=== PATIENT | male | born 1985 | race Caucasian/White ===

== ENCOUNTER 2016-11-06 15:46 | Emergency (ER) | payer BC, OTHER ==
[2016-11-06 17:52] LABS: BASO # 0.1 K/mm3 (0.0-0.2); BASO % 0.9 % (0.0-1.0); EOS # 0.4 K/mm3 (0.0-0.50); EOS % 3.3 % (0.0-3.0); LARGE UNSTAINED CELL # 0.2 K/mm3 (0.0-0.4); LARGE UNSTAINED CELL % 1.4 % (0.0-4.0); LYMPH # 2.7 K/mm3 (1.5-4.5); LYMPH % 22.8 % (24.0-44.0); MEAN CORPUSCULAR HGB CONC 33.7 g/dl (32.0-36.5); MONO # 0.5 K/mm3 (0.0-0.8); MONO % 3.9 % (0.0-5.0); NEUTROPHILS # 8.1 K/mm3 (1.8-7.7); NEUTROPHILS % 67.7 % (36.0-66.0); PLATELET COUNT, AUTOMATED 411 k/mm3 (150-450); RED CELL DISTRIBUTION WIDTH 12.4 % (11.5-14.5); WHITE BLOOD COUNT 11.9 K/mm3 (4.0-10.0)
--- NOTE | 2016-11-06 18:11 | REP ---
Clinical: Right testicular pain. Technique: Real time junior scale and color Doppler evaluation using linear and curved array transducers. Findings: The bilateral testicles are normal in contour, size, echogenicity, and vascularity without evidence for testicular mass lesion, torsion, or infectious/inflammatory process. Incidental note is made of 2.3 mm right epididymal head cyst and 3.1 mm left epididymal head cyst. The right epididymis appears heterogeneous and mildly enlarged with a minimally increased flow. A very subtle epididymitis cannot be excluded. No varicoceles. No significant hydroceles. Right testicle measures 4.4 x 2.1 x 3.5 cm. Left testicle measures 4.3 x 2.3 x 3.3 cm. Impression: Cannot exclude subtle right epididymitis. Signed by Rodolfo Che MD 11/06/2016 06:03 P
[2016-11-06 18:13] LABS: ANION GAP 9 MEQ/L (8-16); BLOOD UREA NITROGEN 13 MG/DL (7-18); CALCIUM LEVEL 9.1 MG/DL (8.5-10.1); CARBON DIOXIDE LEVEL 27 MEQ/L (21-32); CHLORIDE LEVEL 106 MEQ/L (98-107); CREATININE FOR GFR 1.19 MG/DL (0.70-1.30); GLOMERULAR FILTRATION RATE > 60.0 (>60); GLUCOSE, FASTING 106 MG/DL (70-105); POTASSIUM SERUM 4.3 MEQ/L (3.5-5.1); SODIUM LEVEL 142 MEQ/L (136-145)
--- NOTE | 2016-11-06 19:02 | EDDOCDS ---
Physician Documentation [facility] Name: Toñito Foreman Age: 31 yrs Sex: Male : 1985 Arrival Date: 11/06/2016 Time: 15:46 Bed PR Private MD: Mateo Roth R. Disposition: 11/06/16 18:48 Discharged to Home/Self Care. Impression: Epididymitis - RIGHT, Cyst of epididymis - RIGHT AND LEFT. - Condition is Stable. - Discharge Instructions: Scrotal Masses, Epididymitis. - Prescriptions for Cipro 500 mg Oral Tablet - take 1 tablet by ORAL route every 12 hours; 14 tablet. Ibuprofen 600 mg Oral Tablet - take 1 tablet by ORAL route every 6 hours As needed take with food; 30 tablet. - Work Release Form - 1 day, Medication Reconciliation, Local Pharmacy Hours form. - Follow up: Alejandro Doherty; When: 2 - 3 days; Reason: Recheck today's complaints, Continuance of care. - Problem is new. - Symptoms have improved. - Notes: USE MEDICATIONS INSTRUCTED, FOLLOW UP WITH DR DOHERTY, USE SUPPORTIVE JOCK STRAP AND USE WARM BATHES 1-2 TIMES DAILY, RETURN TO THE ER IF THE SYMPTOMS WORSEN OR BECOME CONCERNING Historical: - Allergies: no known allergies; - Home Meds: 1. Zoloft 150mg Oral once daily 2. sleeping medication 3. medication for anger management - PMHx: none; - PSHx: Appendectomy; - Social history: Smoking status: Chewing Tobacco No barriers to communication noted, The patient speaks fluent Croatian. - Family history: Not pertinent. - : The pt / caregiver states he / she is not on anticoagulants. Home medication list is obtained from the patient. - Exposure Risk Screening:: None identified. Vital Signs: 11/06 15:48 BP 126 / 67; Pulse 88; Resp 18 S; Temp 98.6(O); Pulse Ox 100% on R/A; Weight 65.77 kg / dd6 145 lbs (R); Height 5 ft. 6 in. (167.64 cm) (R); 18:53 BP 114 / 62; Pulse 67; Resp 18; Temp 97.2(O); Pulse Ox 100% on R/A; Pain 0/10; ct3 15:48 Body Mass Index 23.40 (65.77 kg, 167.64 cm) dd6 MDM: 17:32 CBC with Diff Ordered. EDMS 17:32 MED Profile Ordered. EDMS 17:33 UA Ordered. EDMS 17:33 Scrotal, US Ordered. EDMS 17:36 Financial registration complete. gjb 17:39 DUPLEX SCAN LIMITED (DOPPLER) Ordered. EDMS 17:54 [facility] Payment Agreement was scanned into [employer] and attached to record. gjb 18:36 CBC with Diff Reviewed. ck7 18:36 MED Profile Reviewed. ck7 18:36 UA Reviewed. ck7 18:36 Scrotal, US Reviewed. ck7 18:38 GC & Chlamydia Amplification Ordered. EDMS 18:38 Urine Culture Ordered. EDMS Signatures: Dispatcher [employer] Jenniffer Bui, RN Brady Gaytan, NALINI-C RPA-CckKody Wahl RN RN jmb Beck, Gabriela gjb The chart was reviewed and I authenticate all verbal orders and agree with the evaluation and treatment provided.Attachments: 17:54 [place] [place] gj MTDD
--- NOTE | 2016-11-06 19:02 | EDDOCDS ---
Nurse's Notes [facility] Name: Toñito Foreman Age: 31 yrs Sex: Male : 1985 Arrival Date: 11/06/2016 Time: 15:46 Bed PR Private MD: Mateo Roth R. Diagnosis: Epididymitis-RIGHT;Cyst of epididymis-RIGHT AND LEFT Presentation: 11/06 15:51 Presenting complaint: Patient states: Pt presents stating 'I have a lump in my right dls [place]" pt means testicle noticed 3 days ago. Adult Sepsis Screening: The patient does not have new or worsening altered mentation. Patient's respiratory rate is less than 22. Systolic blood pressure is greater than 100. Patient has a qSOFA score of 0- Negative Sepsis Screen. Suicide/Homicide risk assessment- the patient denies having any suicidal and/or homicidal ideations and does not present with any other emotional, behavioral or mental health complaints. Status: Patient is not a multimedia services manager or dependent. Transition of care: patient was not received from another setting of care. 15:51 Acuity: WOLF Level 3 dls 15:51 Method Of Arrival: Walkin/Carried/Asstd dls Triage Assessment: 15:56 General: Appears in no apparent distress, slender, well developed, well nourished, well dls groomed, Behavior is cooperative. Pain: Denies pain. HIV screening NA for this visit Offered previously. Historical: - Allergies: no known allergies; - Home Meds: 1. Zoloft 150mg Oral once daily 2. sleeping medication 3. medication for anger management - PMHx: none; - PSHx: Appendectomy; - Social history: Smoking status: Chewing Tobacco No barriers to communication noted, The patient speaks fluent Spanish. - Family history: Not pertinent. - : The pt / caregiver states he / she is not on anticoagulants. Home medication list is obtained from the patient. - Exposure Risk Screening:: None identified. Screenin:00 Screening information is obtained from the patient. Fall risk: No risks identified. jmb Assistance ADL's: requires no assistance with activities of daily living. Abuse/DV Screen: The patient / caregiver reports he/she is: not in a situation that causes fear, pain or injury. Nutritional screening: No deficits noted. Advance Directives: Currently, there is no health care proxy. There is no active DNR order. There is no living will. There is no Power of Picker Tender. home support is adequate. Assessment: 19:00 General: Patient instructed on discharge instructions. Patient asked if there were any b questions regarding discharge, patient stated no. Patient signed discharge instructions. Patient discharged in stable condition.. Vital Signs: 15:48 BP 126 / 67; Pulse 88; Resp 18 S; Temp 98.6(O); Pulse Ox 100% on R/A; Weight 65.77 kg dd6 (R); Height 5 ft. 6 in. (167.64 cm) (R); 18:53 BP 114 / 62; Pulse 67; Resp 18; Temp 97.2(O); Pulse Ox 100% on R/A; Pain 0/10; ct3 15:48 Body Mass Index 23.40 (65.77 kg, 167.64 cm) dd6 Vitals: 15:48 Log In Time: November 06, 2016 at 15:46. dd6 ED Course: 15:48 Patient visited by Lupillo Escobar PCA. dd6 15:48 Mateo Roth is Private Physician. dd6 15:48 Patient moved to Waiting dd6 15:49 Patient moved to Pre RCE dd6 15:53 Triage Initiated dls 16:54 Patient moved to Triage 2 ms18 17:19 Brady Ambrocio RPA-C is PHCP. ck7 17:19 Karishma Arenas MD is Attending Physician. ck7 17:19 Patient visited by Brady Ambrocio RPA-C. ck7 17:41 Patient moved to PR1 / 25 ct3 17:43 Patient moved to TR2 ms18 17:43 UA Sent. ct3 17:43 MED Profile Sent. ct3 17:43 CBC with Diff Sent. ct3 17:53 Patient visited by Brady Ambrocio RPA-C. ck7 17:54 [facility] [place] Agreement was scanned into [employer] and attached to record. gjb 18:24 Patient visited by Yanira Aleman PCA. ct3 18:34 Scrotal, US Returned. EDMS 18:39 Urine Culture Sent. ct3 18:39 GC & Chlamydia Amplification Sent. ct3 18:46 Alejandro Christine is Referral Physician. ck7 18:48 Patient moved to ct3 18:53 Patient visited by Yanira Aleman PCA. ct3 19:00 The patient / caregiver is instructed regarding the plan of care and ED course. jmb 19:00 No IV's were initiated during this patient's visit. No procedures done that require jmb assistance. Order Results: Lab Order: CBC with Diff; SPEC'M 11/06/16 17:35 Test: WHITE BLOOD COUNT; Value: 11.9; Range: 4.0-10.0; Abnormal: Above high normal; Units: K/mm3; Status: F Test: RED BLOOD COUNT; Value: 4.71; Range: 4.30-6.10; Units: M/mm3; Status: F Test: HEMOGLOBIN; Value: 14.1; Range: 14.0-18.0; Units: g/dl; Status: F Test: HEMATOCRIT; Value: 41.9; Range: 42.0-52.0; Abnormal: Below low normal; Units: %; Status: F Test: MEAN CORPUSCULAR VOLUME; Value: 89.0; Range: 80.0-96.0; Units: fl; Status: F Test: MEAN CORPUSCULAR HEMOGLOBIN; Value: 30.0; Range: 27.0-33.0; Units: pg; Status: F Test: MEAN CORPUSCULAR HGB CONC; Value: 33.7; Range: 32.0-36.5; Units: g/dl; Status: F Test: RED CELL DISTRIBUTION WIDTH; Value: 12.4; Range: 11.5-14.5; Units: %; Status: F Test: PLATELET COUNT, AUTOMATED; Value: 411; Range: 150-450; Units: k/mm3; Status: F Test: NEUTROPHILS %; Value: 67.7; Range: 36.0-66.0; Abnormal: Above high normal; Units: %; Status: F Test: LYMPH %; Value: 22.8; Range: 24.0-44.0; Abnormal: Below low normal; Units: %; Status: F Test: MONO %; Value: 3.9; Range: 0.0-5.0; Units: %; Status: F Test: EOS %; Value: 3.3; Range: 0.0-3.0; Abnormal: Above high normal; Units: %; Status: F Test: BASO %; Value: 0.9; Range: 0.0-1.0; Units: %; Status: F Test: LARGE UNSTAINED CELL %; Value: 1.4; Range: 0.0-4.0; Units: %; Status: F Test: NEUTROPHILS #; Value: 8.1; Range: 1.8-7.7; Abnormal: Above high normal; Units: K/mm3; Status: F Test: LYMPH #; Value: 2.7; Range: 1.5-4.5; Units: K/mm3; Status: F Test: MONO #; Value: 0.5; Range: 0.0-0.8; Units: K/mm3; Status: F Test: EOS #; Value: 0.4; Range: 0.0-0.50; Units: K/mm3; Status: F Test: BASO #; Value: 0.1; Range: 0.0-0.2; Units: K/mm3; Status: F Test: LARGE UNSTAINED CELL #; Value: 0.2; Range: 0.0-0.4; Units: K/mm3; Status: F Lab Order: MED Profile; SPEC'M 11/06/16 17:35 Test: GLUCOSE, FASTING; Value: 106; Range: 70-105; Abnormal: Above high normal; Units: MG/DL; Status: F Test: BLOOD UREA NITROGEN; Value: 13; Range: 7-18; Units: MG/DL; Status: F Test: CREATININE FOR GFR; Value: 1.19; Range: 0.70-1.30; Units: MG/DL; Status: F Test: GLOMERULAR FILTRATION RATE; Value: > 60.0; Range: >60; Status: F Test: SODIUM LEVEL; Value: 142; Range: 136-145; Units: MEQ/L; Status: F Test: POTASSIUM SERUM; Value: 4.3; Range: 3.5-5.1; Units: MEQ/L; Status: F Test: CHLORIDE LEVEL; Value: 106; Range: 98-107; Units: MEQ/L; Status: F Test: CARBON DIOXIDE LEVEL; Value: 27; Range: 21-32; Units: MEQ/L; Status: F Test: ANION GAP; Value: 9; Range: 8-16; Units: MEQ/L; Status: F Test: CALCIUM LEVEL; Value: 9.1; Range: 8.5-10.1; Units: MG/DL; Status: F Test Note: ; Units are mL/min/1.73 m2 Chronic Kidney Disease Staging per NKF: Stage I & II GFR >=60 Normal to Mildly Decreased Stage III GFR 30-59 Moderately Decreased Stage IV GFR 15-29 Severely Decreased Stage V GFR <15 Very Little GFR Left ESRD GFR <15 on GAME OPERATOR Lab Order: UA; SPEC'M 11/06/16 17:35 Test: APPEARANCE, URINE; Value: CLEAR; Range: CLEAR; Status: F Test: COLOR, URINE; Value: STRAW; Range: YELLOW; Status: F Test: PH,URINE; Value: 7.0; Range: 5.0-9.0; Units: UNITS; Status: F Test: SPECIFIC GRAVITY URINE AUTO; Value: 1.006; Range: 1.002-1.035; Status: F Test: PROTEIN, URINE AUTO; Value: NEGATIVE; Range: NEGATIVE; Units: mg/dL; Status: F Test: GLUCOSE, URINE (UA) AUTO; Value: NEGATIVE; Range: NEGATIVE; Units: mg/dL; Status: F Test: KETONE, URINE AUTO; Value: NEGATIVE; Range: NEGATIVE; Units: mg/dL; Status: F Test: UROBILINOGEN, URINE AUTO; Value: 0.2; Range: 0.0-2.0; Units: mg/dL; Status: F Test: BILIRUBIN, URINE AUTO; Value: NEGATIVE; Range: NEGATIVE; Status: F Test: NITRITE, URINE AUTO; Value: NEGATIVE; Range: NEGATIVE; Status: F Test: LEUKOCYTE ESTERASE, URINE AUTO; Value: NEGATIVE; Range: NEGATIVE; Status: F Test: BLOOD, URINE BLOOD; Value: NEGATIVE; Range: NEGATIVE; Status: F Test: WBC, URINE AUTO; Value: 0; Range: 0-3; Units: /HPF; Status: F Test: RBC, URINE AUTO; Value: 2; Range: 0-3; Units: /HPF; Status: F Test: BACTERIA, URINE AUTO; Value: NEGATIVE; Range: NEGATIVE; Status: F Test: SQUAMOUS EPITHELIAL CELL UR AU; Value: 0; Range: 0-6; Units: /HPF; Status: F Test: MUCUS, URINE; Value: SMALL; Range: NEGATIVE; Status: F Test: HYALINE CAST, URINE AUTO; Value: 0; Range: 0-1; Units: /LPF; Status: F Radiology Order: Scrotal, US Test: Scrotal, US REASON FOR EXAMINATION: Deformity/Swelling; Clinical: Right testicular pain.; ; Technique: Real time junior scale and color Doppler evaluation using linear and; curved array transducers.; ; Findings:; The bilateral testicles are normal in contour, size, echogenicity, and; vascularity without evidence for testicular mass lesion, torsion, or; infectious/inflammatory process. Incidental note is made of 2.3 mm right; epididymal head cyst and 3.1 mm left epididymal head cyst. The right epididymis; appears heterogeneous and mildly enlarged with a minimally increased flow. A; very subtle epididymitis cannot be excluded. No varicoceles. No significant; hydroceles.; ; Right testicle measures 4.4 x 2.1 x 3.5 cm.; Left testicle measures 4.3 x 2.3 x 3.3 cm.; ; Impression:; Cannot exclude subtle right epididymitis.; ; ; Signed by; Rodolfo Che MD 11/06/2016 06:03 P; Outcome: 18:48 Discharge ordered by Provider. ck7 19:00 Discharge Assessment: Patient awake, alert and oriented x 3. No cognitive and/or jmb functional deficits noted. Patient verbalized understanding of disposition instructions. Patient awake and alert. obeys commands, Oriented to person, place and time. Patient verbalized understanding of disposition instructions. Patient has no functional deficits. patient administered narcotics - no. The following High Risk Discharge criteria are identified: None. Discharged to home ambulatory, with significant other. Condition: stable. Discharge instructions given to patient, Instructed on discharge instructions, follow up and referral plans. medication usage, Demonstrated understanding of instructions, medications, Pt was receptive of discharge instructions/ teaching. Work note provided to patient. Property sent home with patient. 19:02 Ultrasound Study completed. gloria 19:02 Patient left the ED. gloria Signatures: Dispatcher [employer] EDJenniffer Velazquez RN RN dls Desormeau, Daniell, COMPENSATOR COMPENSATOR dd6 Yanira Aleman, COMPENSATOR COMPENSATOR ct3 Brady Ambrocio, RPA-C [id number] Kody Barriga RN RN jmb Smith,Kathi,RN RN ms18 Dalia Hidalgo BETTYD
--- NOTE | 2016-11-08 20:34 | EDDOCDS ---
Nurse's Notes [facility] Name: Toñito Foreman Age: 31 yrs Sex: Male : 1985 Arrival Date: 11/06/2016 Time: 15:46 Bed PR Private MD: Mtaeo Roth R. Diagnosis: Epididymitis-RIGHT;Cyst of epididymis-RIGHT AND LEFT Presentation: 11/06 15:51 Presenting complaint: Patient states: Pt presents stating 'I have a lump in my right dls [place]" pt means testicle noticed 3 days ago. Adult Sepsis Screening: The patient does not have new or worsening altered mentation. Patient's respiratory rate is less than 22. Systolic blood pressure is greater than 100. Patient has a qSOFA score of 0- Negative Sepsis Screen. Suicide/Homicide risk assessment- the patient denies having any suicidal and/or homicidal ideations and does not present with any other emotional, behavioral or mental health complaints. 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 Transition of care: patient was not received from another setting of care. 15:51 Acuity: WOLF Level 3 dls 15:51 Method Of Arrival: Walkin/Carried/Asstd dls Triage Assessment: 15:56 General: Appears in no apparent distress, slender, well developed, well nourished, well dls groomed, Behavior is cooperative. Pain: Denies pain. HIV screening NA for this visit Offered previously. Historical: - Allergies: no known allergies; - Home Meds: 1. Zoloft 150mg Oral once daily 2. sleeping medication 3. medication for anger management - PMHx: none; - PSHx: Appendectomy; - Social history: Smoking status: Chewing Tobacco No barriers to communication noted, The patient speaks fluent Mohawk. - Family history: Not pertinent. - : The pt / caregiver states he / she is not on anticoagulants. Home medication list is obtained from the patient. - Exposure Risk Screening:: None identified. Screenin:00 Screening information is obtained from the patient. Fall risk: No risks identified. jmb Assistance ADL's: requires no assistance with activities of daily living. Abuse/DV Screen: The patient / caregiver reports he/she is: not in a situation that causes fear, pain or injury. Nutritional screening: No deficits noted. Advance Directives: Currently, there is no health care proxy. There is no active DNR order. There is no living will. There is no Power of Manager Customer Service. home support is adequate. Assessment: 19:00 General: Patient instructed on discharge instructions. Patient asked if there were any b questions regarding discharge, patient stated no. Patient signed discharge instructions. Patient discharged in stable condition.. Vital Signs: 15:48 BP 126 / 67; Pulse 88; Resp 18 S; Temp 98.6(O); Pulse Ox 100% on R/A; Weight 65.77 kg dd6 (R); Height 5 ft. 6 in. (167.64 cm) (R); 18:53 BP 114 / 62; Pulse 67; Resp 18; Temp 97.2(O); Pulse Ox 100% on R/A; Pain 0/10; ct3 15:48 Body Mass Index 23.40 (65.77 kg, 167.64 cm) dd6 Vitals: 15:48 Log In Time: November 06, 2016 at 15:46. dd6 ED Course: 15:48 Patient visited by Lupillo Escobar PCA. dd6 15:48 Mateo Roth is Private Physician. dd6 15:48 Patient moved to Waiting dd6 15:49 Patient moved to Pre RCE dd6 15:53 Triage Initiated dls 16:54 Patient moved to Triage 2 ms18 17:19 Brady Ambrocio RPA-C is PHCP. ck7 17:19 Karishma Arenas MD is Attending Physician. ck7 17:19 Patient visited by Brady Ambrocio RPA-C. ck7 17:41 Patient moved to PR1 / 25 ct3 17:43 Patient moved to TR2 ms18 17:43 UA Sent. ct3 17:43 MED Profile Sent. ct3 17:43 CBC with Diff Sent. ct3 17:53 Patient visited by Brady Ambrocio RPA-C. ck7 17:54 [place] was scanned into [employer] and attached to record. gjb 18:24 Patient visited by Yanira Aleman PCA. ct3 18:34 Scrotal, US Returned. EDMS 18:39 Urine Culture Sent. ct3 18:39 GC & Chlamydia Amplification Sent. ct3 18:46 Alejandro Christine is Referral Physician. ck7 18:48 Patient moved to ct3 18:53 Patient visited by Yanira Aleman PCA. ct3 19:00 The patient / caregiver is instructed regarding the plan of care and ED course. jmb 19:00 No IV's were initiated during this patient's visit. No procedures done that require jmb assistance. 11/07 05:57 T-Sheet-- Draft Copy was scanned into [employer] and attached to record. lja Order Results: Lab Order: CBC with Diff; SPEC'M 11/06/16 17:35 Test: WHITE BLOOD COUNT; Value: 11.9; Range: 4.0-10.0; Abnormal: Above high normal; Units: K/mm3; Status: F Test: RED BLOOD COUNT; Value: 4.71; Range: 4.30-6.10; Units: M/mm3; Status: F Test: HEMOGLOBIN; Value: 14.1; Range: 14.0-18.0; Units: g/dl; Status: F Test: HEMATOCRIT; Value: 41.9; Range: 42.0-52.0; Abnormal: Below low normal; Units: %; Status: F Test: MEAN CORPUSCULAR VOLUME; Value: 89.0; Range: 80.0-96.0; Units: fl; Status: F Test: MEAN CORPUSCULAR HEMOGLOBIN; Value: 30.0; Range: 27.0-33.0; Units: pg; Status: F Test: MEAN CORPUSCULAR HGB CONC; Value: 33.7; Range: 32.0-36.5; Units: g/dl; Status: F Test: RED CELL DISTRIBUTION WIDTH; Value: 12.4; Range: 11.5-14.5; Units: %; Status: F Test: PLATELET COUNT, AUTOMATED; Value: 411; Range: 150-450; Units: k/mm3; Status: F Test: NEUTROPHILS %; Value: 67.7; Range: 36.0-66.0; Abnormal: Above high normal; Units: %; Status: F Test: LYMPH %; Value: 22.8; Range: 24.0-44.0; Abnormal: Below low normal; Units: %; Status: F Test: MONO %; Value: 3.9; Range: 0.0-5.0; Units: %; Status: F Test: EOS %; Value: 3.3; Range: 0.0-3.0; Abnormal: Above high normal; Units: %; Status: F Test: BASO %; Value: 0.9; Range: 0.0-1.0; Units: %; Status: F Test: LARGE UNSTAINED CELL %; Value: 1.4; Range: 0.0-4.0; Units: %; Status: F Test: NEUTROPHILS #; Value: 8.1; Range: 1.8-7.7; Abnormal: Above high normal; Units: K/mm3; Status: F Test: LYMPH #; Value: 2.7; Range: 1.5-4.5; Units: K/mm3; Status: F Test: MONO #; Value: 0.5; Range: 0.0-0.8; Units: K/mm3; Status: F Test: EOS #; Value: 0.4; Range: 0.0-0.50; Units: K/mm3; Status: F Test: BASO #; Value: 0.1; Range: 0.0-0.2; Units: K/mm3; Status: F Test: LARGE UNSTAINED CELL #; Value: 0.2; Range: 0.0-0.4; Units: K/mm3; Status: F Lab Order: [facility]; SPEC'M 11/06/16 17:35 Test: GLUCOSE, FASTING; Value: 106; Range: 70-105; Abnormal: Above high normal; Units: MG/DL; Status: F Test: BLOOD UREA NITROGEN; Value: 13; Range: 7-18; Units: MG/DL; Status: F Test: CREATININE FOR GFR; Value: 1.19; Range: 0.70-1.30; Units: MG/DL; Status: F Test: GLOMERULAR FILTRATION RATE; Value: > 60.0; Range: >60; Status: F Test: SODIUM LEVEL; Value: 142; Range: 136-145; Units: MEQ/L; Status: F Test: POTASSIUM SERUM; Value: 4.3; Range: 3.5-5.1; Units: MEQ/L; Status: F Test: CHLORIDE LEVEL; Value: 106; Range: 98-107; Units: MEQ/L; Status: F Test: CARBON DIOXIDE LEVEL; Value: 27; Range: 21-32; Units: MEQ/L; Status: F Test: ANION GAP; Value: 9; Range: 8-16; Units: MEQ/L; Status: F Test: CALCIUM LEVEL; Value: 9.1; Range: 8.5-10.1; Units: MG/DL; Status: F Test Note: ; Units are mL/min/1.73 m2 Chronic Kidney Disease Staging per NKF: Stage I & II GFR >=60 Normal to Mildly Decreased Stage III GFR 30-59 Moderately Decreased Stage IV GFR 15-29 Severely Decreased Stage V GFR <15 Very Little GFR Left ESRD GFR <15 on 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 Lab Order: UA; SPEC'M 11/06/16 17:35 Test: APPEARANCE, URINE; Value: CLEAR; Range: CLEAR; Status: F Test: COLOR, URINE; Value: STRAW; Range: YELLOW; Status: F Test: PH,URINE; Value: 7.0; Range: 5.0-9.0; Units: UNITS; Status: F Test: SPECIFIC GRAVITY URINE AUTO; Value: 1.006; Range: 1.002-1.035; Status: F Test: PROTEIN, URINE AUTO; Value: NEGATIVE; Range: NEGATIVE; Units: mg/dL; Status: F Test: GLUCOSE, URINE (UA) AUTO; Value: NEGATIVE; Range: NEGATIVE; Units: mg/dL; Status: F Test: KETONE, URINE AUTO; Value: NEGATIVE; Range: NEGATIVE; Units: mg/dL; Status: F Test: UROBILINOGEN, URINE AUTO; Value: 0.2; Range: 0.0-2.0; Units: mg/dL; Status: F Test: BILIRUBIN, URINE AUTO; Value: NEGATIVE; Range: NEGATIVE; Status: F Test: NITRITE, URINE AUTO; Value: NEGATIVE; Range: NEGATIVE; Status: F Test: LEUKOCYTE ESTERASE, URINE AUTO; Value: NEGATIVE; Range: NEGATIVE; Status: F Test: BLOOD, URINE BLOOD; Value: NEGATIVE; Range: NEGATIVE; Status: F Test: WBC, URINE AUTO; Value: 0; Range: 0-3; Units: /HPF; Status: F Test: RBC, URINE AUTO; Value: 2; Range: 0-3; Units: /HPF; Status: F Test: BACTERIA, URINE AUTO; Value: NEGATIVE; Range: NEGATIVE; Status: F Test: SQUAMOUS EPITHELIAL CELL UR AU; Value: 0; Range: 0-6; Units: /HPF; Status: F Test: MUCUS, URINE; Value: SMALL; Range: NEGATIVE; Status: F Test: HYALINE CAST, URINE AUTO; Value: 0; Range: 0-1; Units: /LPF; Status: F Lab Order: Urine Culture; SPEC'M 11/06/16 17:35 Test: URINE CULTURE; Value: URINE CULTURE RESULT; Status: F Test: URINE CULTURE; Value: NO GROWTH CLINICAL SIGNIFICANCE 2 OR MORE ORGANISMS; Status: F Lab Order: GC & Chlamydia Amplification; SPEC'M 11/06/16 17:35 Test: CHLAMYDIA DNA AMPLIFICATION; Value: NEGATIVE; Range: NEGATIVE; Status: F Test: GC DNA AMPLIFICATION; Value: NEGATIVE; Range: NEGATIVE; Status: F Radiology Order: Scrotal, US Test: Scrotal, US REASON FOR EXAMINATION: Deformity/Swelling; Clinical: Right testicular pain.; ; Technique: Real time junior scale and color Doppler evaluation using linear and; curved array transducers.; ; Findings:; The bilateral testicles are normal in contour, size, echogenicity, and; vascularity without evidence for testicular mass lesion, torsion, or; infectious/inflammatory process. Incidental note is made of 2.3 mm right; epididymal head cyst and 3.1 mm left epididymal head cyst. The right epididymis; appears heterogeneous and mildly enlarged with a minimally increased flow. A; very subtle epididymitis cannot be excluded. No varicoceles. No significant; hydroceles.; ; Right testicle measures 4.4 x 2.1 x 3.5 cm.; Left testicle measures 4.3 x 2.3 x 3.3 cm.; ; Impression:; Cannot exclude subtle right epididymitis.; ; ; Signed by; Rodolfo Che MD 11/06/2016 06:03 P; Outcome: 11/06 18:48 Discharge ordered by Provider. ck7 19:00 Discharge Assessment: Patient awake, alert and oriented x 3. No cognitive and/or jmb functional deficits noted. Patient verbalized understanding of disposition instructions. Patient awake and alert. obeys commands, Oriented to person, place and time. Patient verbalized understanding of disposition instructions. Patient has no functional deficits. patient administered narcotics - no. The following High Risk Discharge criteria are identified: None. Discharged to home ambulatory, with significant other. Condition: stable. Discharge instructions given to patient, Instructed on discharge instructions, follow up and referral plans. medication usage, Demonstrated understanding of instructions, medications, Pt was receptive of discharge instructions/ teaching. Work note provided to patient. Property sent home with patient. 19:02 Ultrasound Study completed. gloria 19:02 Patient left the ED. gloria Signatures: Dispatcher [employer] EDJenniffer Velazquez, RN RN dls Lupillo Escobar, CASHIER GAMBLING CASHIER GAMBLING dd6 Yanira Aleman, CASHIER GAMBLING CASHIER GAMBLING ct3 Brady Ambrocio, RPA-C RPA-Cck7 Kody BarrigaRN RN Kathi Fink RN RN [id number] Arel, Dalia Randall Chart Complete MTDKirsten
--- NOTE | 2016-11-08 20:34 | EDDOCDS ---
Physician Documentation [facility] Name: Toñito Foreman Age: 31 yrs Sex: Male : 1985 Arrival Date: 11/06/2016 Time: 15:46 Bed PR Private MD: Mateo Roth R. Disposition: 11/06/16 18:48 Discharged to Home/Self Care. Impression: Epididymitis - RIGHT, Cyst of epididymis - RIGHT AND LEFT. - Condition is Stable. - Discharge Instructions: Scrotal Masses, Epididymitis. - Prescriptions for Cipro 500 mg Oral Tablet - take 1 tablet by ORAL route every 12 hours; 14 tablet. Ibuprofen 600 mg Oral Tablet - take 1 tablet by ORAL route every 6 hours As needed take with food; 30 tablet. - Work Release Form - 1 day, Medication Reconciliation, Local Pharmacy Hours form. - Follow up: Alejandro Doherty; When: 2 - 3 days; Reason: Recheck today's complaints, Continuance of care. - Problem is new. - Symptoms have improved. - Notes: USE MEDICATIONS INSTRUCTED, FOLLOW UP WITH DR DOHERTY, USE SUPPORTIVE JOCK STRAP AND USE WARM BATHES 1-2 TIMES DAILY, RETURN TO THE ER IF THE SYMPTOMS WORSEN OR BECOME CONCERNING Historical: - Allergies: no known allergies; - Home Meds: 1. Zoloft 150mg Oral once daily 2. sleeping medication 3. medication for anger management - PMHx: none; - PSHx: Appendectomy; - Social history: Smoking status: Chewing Tobacco No barriers to communication noted, The patient speaks fluent Cuban. - Family history: Not pertinent. - : The pt / caregiver states he / she is not on anticoagulants. Home medication list is obtained from the patient. - Exposure Risk Screening:: None identified. Vital Signs: 11/06 15:48 BP 126 / 67; Pulse 88; Resp 18 S; Temp 98.6(O); Pulse Ox 100% on R/A; Weight 65.77 kg / dd6 145 lbs (R); Height 5 ft. 6 in. (167.64 cm) (R); 18:53 BP 114 / 62; Pulse 67; Resp 18; Temp 97.2(O); Pulse Ox 100% on R/A; Pain 0/10; ct3 15:48 Body Mass Index 23.40 (65.77 kg, 167.64 cm) dd6 MDM: 17:32 CBC with Diff Ordered. EDMS 17:32 MED Profile Ordered. EDMS 17:33 UA Ordered. EDMS 17:33 Scrotal, US Ordered. EDMS 17:36 Financial registration complete. gjb 17:39 DUPLEX SCAN LIMITED (DOPPLER) Ordered. EDMS 17:54 [place] Payment Agreement was scanned into [employer] and attached to record. gjb 18:36 CBC with Diff Reviewed. ck7 18:36 MED Profile Reviewed. ck7 18:36 UA Reviewed. ck7 18:36 Scrotal, US Reviewed. ck7 18:38 GC & Chlamydia Amplification Ordered. EDMS 18:38 Urine Culture Ordered. EDMS 11/07 05:57 T-Sheet-- Draft Copy was scanned into [employer] and attached to record. clint Signatures: Dispatcher [employer] EDJenniffer Velazquez, Brady Gaytan RN, RPA-C RPA-Cck7 Kody Barriga RN RN jmb Arekonrad, Dalia Randall The chart was reviewed and I authenticate all verbal orders and agree with the evaluation and treatment provided.Attachments: 11/06 17:54 [place] [place] Payment Agreement gjb 11/07 05:57 T-Sheet-- Draft Copy clint Chart Complete MTDD
--- NOTE | 2016-11-08 20:34 | EDDOCDS ---
Physician Documentation Name: Toñito Foreman Age: 31 yrs Sex: Male : 1985 Arrival Date: 11/06/2016 Time: 15:46 Bed PR Private MD: Mateo Roth R. Disposition: 11/06/16 18:48 Discharged to Home/Self Care. Impression: Epididymitis - RIGHT, Cyst of epididymis - RIGHT AND LEFT. - Condition is Stable. - Discharge Instructions: Scrotal Masses, Epididymitis. - Prescriptions for Cipro 500 mg Oral Tablet - take 1 tablet by ORAL route every 12 hours; 14 tablet. Ibuprofen 600 mg Oral Tablet - take 1 tablet by ORAL route every 6 hours As needed take with food; 30 tablet. - Work Release Form - 1 day, Medication Reconciliation, Local Pharmacy Hours form. - Follow up: Alejandro Doherty; When: 2 - 3 days; Reason: Recheck today's complaints, Continuance of care. - Problem is new. - Symptoms have improved. - Notes: USE MEDICATIONS INSTRUCTED, FOLLOW UP WITH DR DOHERTY, USE SUPPORTIVE JOCK STRAP AND USE WARM BATHES 1-2 TIMES DAILY, RETURN TO THE ER IF THE SYMPTOMS WORSEN OR BECOME CONCERNING Historical: - Allergies: no known allergies; - Home Meds: 1. Zoloft 150mg Oral once daily 2. sleeping medication 3. medication for anger management - PMHx: none; - PSHx: Appendectomy; - Social history: Smoking status: Chewing Tobacco No barriers to communication noted, The patient speaks fluent Montenegrin. - Family history: Not pertinent. - : The pt / caregiver states he / she is not on anticoagulants. Home medication list is obtained from the patient. - Exposure Risk Screening:: None identified. Vital Signs: 11/06 15:48 BP 126 / 67; Pulse 88; Resp 18 S; Temp 98.6(O); Pulse Ox 100% on R/A; Weight 65.77 kg / dd6 145 lbs (R); Height 5 ft. 6 in. (167.64 cm) (R); 18:53 BP 114 / 62; Pulse 67; Resp 18; Temp 97.2(O); Pulse Ox 100% on R/A; Pain 0/10; ct3 15:48 Body Mass Index 23.40 (65.77 kg, 167.64 cm) dd6 MDM: 17:32 CBC with Diff Ordered. EDMS 17:32 MED Profile Ordered. EDMS 17:33 UA Ordered. EDMS 17:33 Scrotal, US Ordered. EDMS 17:36 Financial registration complete. gjb 17:39 DUPLEX SCAN LIMITED (DOPPLER) Ordered. EDMS 17:54 [place] Payment Agreement was scanned into [employer] and attached to record. gjb 18:36 CBC with Diff Reviewed. ck7 18:36 MED Profile Reviewed. ck7 18:36 UA Reviewed. ck7 18:36 Scrotal, US Reviewed. ck7 18:38 GC & Chlamydia Amplification Ordered. EDMS 18:38 Urine Culture Ordered. EDMS 11/07 05:57 T-Sheet-- Draft Copy was scanned into [employer] and attached to record. clint Signatures: Dispatcher [employer] EDJenniffer Velazquez, Brady Gaytan RN, RPA-C RPA-Cck7 Kody Barriga RN RN jmb Arekonrad, Dalia Randall The chart was reviewed and I authenticate all verbal orders and agree with the evaluation and treatment provided.Attachments: 11/06 17:54 [place] [place] gjb 11/07 05:57 T-Sheet-- Draft Copy clint Chart Complete MTDD
== END 2016-11-06 19:02 | disposition home or self-care (01) ==
LOC: M ED 15:46
DX: N50.3 Cyst of epididymis (principal); N45.1 Epididymitis; Z79.899 Other long term (current) drug therapy; F17.228 Nicotine dependence, chewing tobacco, with other nicotine-induced disorders; Z90.89 Acquired absence of other organs

== ENCOUNTER → 2016-12-01 | Outpatient (REF) | payer OTHER | LOC: M SFHCLERA 12:11 | PROVIDERS: ATTEND Nurse Practitioner Family | DX: J06.9 Acute upper respiratory infection, unspecified (principal) ==

== ENCOUNTER → 2017-05-10 | Outpatient (REF) | payer OTHER | LOC: M SFHCLERA 17:23 | PROVIDERS: ATTEND Nurse Practitioner Family | DX: J02.9 Acute pharyngitis, unspecified (principal) ==

== ENCOUNTER 2017-08-05 22:01 | Emergency (ER) | payer BC, OTHER ==
[~2017-08-05] VITALS: Ht 167.6 cm; Wt 64.5 kg
[2017-08-05] MEDS ORDERED: DERMABOND TOPICAL SKIN ADHESIVE TOP ONE (22:30)
[2017-08-05] MEDS ORDERED: ADACEL/BOOSTRIX VACCINE (DIPHTH/PERTUSS/ACELL/TETANUS)0.5ML SYR (90715) IM ONE (22:30)
[2017-08-05 22:47] VITALS: BP 130/70
== END 2017-08-05 22:55 | disposition home or self-care (01) ==
LOC: M ED 22:01
DX: S61.511A Laceration without foreign body of right wrist, initial encounter (principal); W25.XXXA Contact with sharp glass, initial encounter; Y93.H9 Activity, other involving exterior property and land maintenance, building and construction; Y92.019 Unspecified place in single-family (private) house as the place of occurrence of the external cause; Y99.8 Other external cause status; F17.210 Nicotine dependence, cigarettes, uncomplicated

== ENCOUNTER 2018-10-14 20:48 | Emergency (ER) | payer OTHER, BC ==
[2018-10-14] MEDS: NORCO 5/325MG TABLET (BULK FOR ED) PO (22:08)
[2018-10-14] MEDS: CARISOPRODOL 350 MG TAB PO (22:08)
[2018-10-15] MEDS ORDERED: METAL LOCK LOOP XX (02:26)
== END 2018-10-14 22:21 | disposition home or self-care (01) ==
LOC: M ED 22:21
DX: S30.0XXA Contusion of lower back and pelvis, initial encounter (principal)
CPT/HCPCS: 99283

== ENCOUNTER → 2019-07-16 | Outpatient (CLI) | payer OTHER ==
[~2019-07-16] MED LIST: IBUP-1022 PO; SOMA350T PO
--- NOTE | 2019-07-16 19:17 | REP ---
REASON: Pain. FINDINGS: No acute fracture or destructive osseous lesion. Electronically Signed by Taj Navarro DO 07/16/2019 07:29 P
== END ==
LOC: M LRY 18:52
PROVIDERS: ATTEND Nurse Practitioner Family
DX: S81.802A Unspecified open wound, left lower leg, initial encounter (principal); W22.8XXA Striking against or struck by other objects, initial encounter; Y92.89 Other specified places as the place of occurrence of the external cause; Y93.9 Activity, unspecified; Y99.0 Civilian activity done for income or pay

== ENCOUNTER → 2020-04-07 | Outpatient (CLI) | payer OTHER ==
--- NOTE | 2020-04-07 16:30 | REP ---
SHOULDER: REASON: Pain after trauma. COMPARISON: No priors. FINDINGS: Three views of the shoulder were performed. The acromioclavicular and glenohumeral relationships are within normal limits. There is no acute fracture or destructive osseous lesion. Electronically Signed by Taj Navarro DO 04/07/2020 04:57 P
== END ==
LOC: M LRY 15:49
PROVIDERS: ATTEND Nurse Practitioner Family
DX: S49.92XA Unspecified injury of left shoulder and upper arm, initial encounter (principal); V86.55XA Driver of 3- or 4- wheeled all-terrain vehicle (ATV) injured in nontraffic accident, initial encounter; Y92.9 Unspecified place or not applicable

== ENCOUNTER → 2021-01-27 | Outpatient (CLI) | payer OTHER ==
--- NOTE | 2021-01-27 09:38 | REP ---
INDICATION: RIGHT FLANK PAIN. COMPARISON: None. TECHNIQUE: KUB: Three views provided. FINDINGS: Bowel gas pattern is normal. There is air and stool in a nondistended colon. No large or small bowel dilation is seen. Psoas margins and flank stripes are intact. No mass, organomegaly, or pathologic calcification is seen. There is a phlebolith in the left true pelvis. No urinary tract calculus is visible. IMPRESSION: Negative KUB. <Electronically signed by Shukri Rivas > 01/27/21 [id number]
[2021-01-27 11:25] LABS: BASO # 0.1 10^3/uL (0.0-0.2); BASO % 1.3 % (0.0-1.0); EOS # 0.3 10^3/uL (0.0-0.5); EOS % 2.6 % (0.0-3.0); HEMATOCRIT 44.8 % (42.0-52.0); HEMOGLOBIN 14.9 g/dl (13.5-17.5); LYMPH # 2.7 10^3/uL (1.5-5.0); LYMPH % 26.9 % (24.0-44.0); MEAN CORPUSCULAR HEMOGLOBIN 30.2 pg (27.0-33.0); MEAN CORPUSCULAR HGB CONC 33.3 g/dl (32.0-36.5); MEAN CORPUSCULAR VOLUME 90.7 fl (80.0-96.0); MONO # 0.9 10^3/uL (0.0-0.8); MONO % 8.6 % (2.0-8.0); NEUTROPHILS # 6.1 10^3/uL (1.5-8.5); NEUTROPHILS % 60.3 % (36.0-66.0); PLATELET COUNT, AUTOMATED 469 10^3/uL (150-450); RED BLOOD COUNT 4.94 10^6/uL (4.30-6.10); WHITE BLOOD COUNT 10.1 10^3/uL (4.0-10.0)
[2021-01-27 12:12] LABS: ALBUMIN 4.2 GM/DL (3.2-5.2); ALT/SGPT 42 U/L (12-78); AMYLASE 81 U/L (25-115); BILIRUBIN,TOTAL 0.3 MG/DL (0.2-1.0); BLOOD UREA NITROGEN 23 MG/DL (7-18); CALCIUM LEVEL 9.5 MG/DL (8.5-10.1); CARBON DIOXIDE LEVEL 28 MEQ/L (21-32); CHLORIDE LEVEL 104 MEQ/L (98-107); CREATININE FOR GFR 1.06 MG/DL (0.70-1.30); GLOMERULAR FILTRATION RATE > 60.0 (>60); GLUCOSE, FASTING 89 MG/DL (70-100); LIPASE 100 U/L (73-393); POTASSIUM SERUM 4.7 MEQ/L (3.5-5.1); SODIUM LEVEL 135 MEQ/L (136-145); TOTAL PROTEIN 7.1 GM/DL (6.4-8.2)
== END ==
LOC: M WUC 09:06
PROVIDERS: ATTEND Physician Assistant
DX: M54.5 Low back pain (principal)

== ENCOUNTER → 2024-03-07 | Outpatient (CLI) | payer OTHER | LOC: M WUC 12:35 | PROVIDERS: ATTEND Family Medicine | DX: M25.561 Pain in right knee (principal) ==

== ENCOUNTER → 2024-04-11 | Outpatient (REF) | payer OTHER | LOC: M SMT 17:21 | PROVIDERS: ATTEND Urology | DX: A63.0 Anogenital (venereal) warts (principal) ==

== ENCOUNTER → 2024-07-18 | Outpatient (REF) | payer OTHER ==
[2024-07-18 17:04] LABS: ALBUMIN 3.9 G/DL (3.2-5.2); ALKALINE PHOSPHATASE 100 U/L (46-116); ALT/SGPT 32 U/L (7.0-40); AST/SGOT 21 U/L (<34); BILIRUBIN,TOTAL 0.5 MG/DL (0.3-1.2); BLOOD UREA NITROGEN 14 MG/DL (9-23); CALCIUM LEVEL 9.4 MG/DL (8.5-10.1); CARBON DIOXIDE LEVEL 28 MMOL/L (20-31); CHLORIDE LEVEL 108 MMOL/L (98-107); GLOMERULAR FILTRATION RATE > 60.0 (>60); GLUCOSE, FASTING 104 MG/DL (60-100); POTASSIUM SERUM 4.8 MMOL/L (3.5-5.1); SODIUM LEVEL 139 MMOL/L (136-145); TOTAL PROTEIN 6.7 G/DL (5.7-8.2)
[2024-07-18 17:06] LABS: FREE T4 1.34 NG/DL (0.89-1.76); THYROID STIMULATING HORMONE 0.435 uIU/ML (0.55-4.78)
[2024-07-18 17:10] LABS: BASO # 0.2 10^3/uL (0.0-0.2); BASO % 1.3 % (0.0-1.0); EOS # 0.3 10^3/uL (0.0-0.5); EOS % 2.5 % (0.0-3.0); HEMATOCRIT 42.6 % (42.0-52.0); HEMOGLOBIN 14.5 g/dl (13.5-17.5); LYMPH % 26.6 % (24.0-44.0); MEAN CORPUSCULAR HEMOGLOBIN 30.1 pg (27.0-33.0); MEAN CORPUSCULAR VOLUME 88.4 fl (80.0-96.0); MONO # 0.8 10^3/uL (0.0-0.8); MONO % 6.6 % (2.0-8.0); NEUTROPHILS # 7.2 10^3/uL (1.5-8.5); NEUTROPHILS % 62.7 % (36.0-66.0); PLATELET COUNT, AUTOMATED 432 10^3/uL (150-450); RED BLOOD COUNT 4.82 10^6/uL (4.30-6.10); WHITE BLOOD COUNT 11.4 10^3/uL (4.0-10.0)
[2024-07-18 17:39] LABS: HEMOGLOBIN A1c 5.3 % (4.0-6.0)
== END ==
LOC: M SFHCLERA 13:32
PROVIDERS: ATTEND Family Medicine
DX: F41.8 Other specified anxiety disorders (principal); E66.3 Overweight

== ENCOUNTER → 2024-07-25 | Outpatient (REF) | payer OTHER ==
[2024-07-25 17:58] LABS: CHOLESTEROL RISK RATIO 5.68 (<5); HDL CHOLESTEROL 34.5 MG/DL (>40); LDL CHOLESTEROL 116.5 MG/DL (<100); NON-HDL-C 161.5 MG/DL
== END ==
LOC: M SFHCLERA 08:47
PROVIDERS: ATTEND Family Medicine
DX: F41.8 Other specified anxiety disorders (principal); E66.3 Overweight

== ENCOUNTER → 2024-08-29 | Outpatient (CLI) | payer OTHER | LOC: M PLARAD 14:53 | PROVIDERS: ATTEND Physician Assistant | DX: M25.561 Pain in right knee (principal); M25.461 Effusion, right knee ==

== ENCOUNTER → 2024-09-08 | Outpatient (CLI) | payer OTHER | LOC: M SOG 13:42 | PROVIDERS: ATTEND Physician Assistant | DX: M25.551 Pain in right hip (principal) ==

== ENCOUNTER → 2025-07-10 | Outpatient (REF) | payer OTHER ==
[~2025-07-10] MED LIST changes: -IBUP-1022 PO; +IBUP600T42 PO
[2025-07-10 18:49] LABS: PLATELET COUNT, AUTOMATED 440 10^3/uL (150-450)
[2025-07-10 18:55] LABS: ALT/SGPT 21 U/L (7.0-40); AST/SGOT 21 U/L (<34); CALCIUM LEVEL 9.7 MG/DL (8.5-10.1); CARBON DIOXIDE LEVEL 27 MMOL/L (20-31); CHLORIDE LEVEL 105 MMOL/L (98-107); CHOLESTEROL LEVEL 194 MG/DL (<200); CHOLESTEROL RISK RATIO 4.98 (<5); CREATININE FOR GFR 0.90 MG/DL (0.70-1.30); GLOMERULAR FILTRATION RATE > 90.0 (>60); LDL CHOLESTEROL 121.1 MG/DL (<100); NON-HDL-C 155.1 MG/DL; POTASSIUM SERUM 4.7 MMOL/L (3.5-5.1); SODIUM LEVEL 139 MMOL/L (136-145); TRIGLYCERIDES LEVEL 170 MG/DL (<150)
[2025-07-10 18:57] LABS: FREE T4 1.25 NG/DL (0.89-1.76)
[2025-07-10 19:22] LABS: ESTIMATED AVERAGE GLUCOSE 108.0 MG/DL (60-110)
== END ==
LOC: M SFHCLERA 10:49
DX: Z00.00 Encounter for general adult medical examination without abnormal findings (principal); I10 Essential (primary) hypertension; E11.43 Type 2 diabetes mellitus with diabetic autonomic (poly)neuropathy; J45.40 Moderate persistent asthma, uncomplicated; E78.00 Pure hypercholesterolemia, unspecified; M54.41 Lumbago with sciatica, right side; F41.9 Anxiety disorder, unspecified